=== PATIENT | female | born 1985 | race African-American/Black ===

== ENCOUNTER 2016-06-07 02:31 | Emergency (ER) | payer OTHER ==
[~2016-06-07] VITALS: Ht 160 cm; Wt 85.9 kg
[2016-06-07 03:07] LABS: HEMATOCRIT 32.3 % (37.0-47.0); IMMATURE GRANULOCYTES 0.2 % (0.0-1.0); MEAN CELL VOLUME 83.9 fL CALC (80.0-100.0); NEUT# 2.41 thou/uL (2.00-7.15); RED BLOOD COUNT 3.85 mill/uL (4.20-5.60); RED CELL DISTRI WIDTH 14.6 % (11.5-15.5)
[2016-06-07 03:08] LABS: URINE BILIRUBIN - DIPSTICK NEGATIVE (NEGATIVE); URINE BLOOD DIPSTICK NEGATIVE (NEGATIVE); URINE CLARITY TURBID; URINE COLOR YELLOW; URINE GLUCOSE - DIPSTICK NEGATIVE (NEGATIVE); URINE KETONE NEGATIVE (NEGATIVE); URINE LEUK ESTERASE LARGE (NEGATIVE); URINE NITRITE - DIPSTICK NEGATIVE (Negative); URINE PH 6.5 (4.5-8.0); URINE PROTEIN - DIPSTICK NEGATIVE (NEG-TRACE); URINE UROBILINOGEN - DIPSTICK 0.2 E.U./dL (0.2)
[2016-06-07 03:09] LABS: URINE BACTERIA MODERATE hpf; URINE RBC 0-2 RBC/hpf (0-5); URINE SQUAMOUS EPITHELIAL CELL MANY EPI/hpf (0-FEW); URINE WBC 50-100 WBC/hpf (0-5)
[2016-06-07 03:27] LABS: ALBUMIN 4.2 g/dL (3.2-5.0); ALKALINE PHOSPHATASE 67 u/l (38-126); ANION GAP 16 (6-22 (CALC)); BILIRUBIN, TOTAL 0.4 mg/dL (0.0-1.4); BUN 16 mg/dL (7-17); BUN/CREATININE RATIO 25 (12-20 (CALC)); CALCIUM 9.6 mg/dL (8.4-10.2); CARBON DIOXIDE 24 mmol/l (22-30); CHLORIDE 104 mmol/l (95-108); CREATININE 0.6 mg/dL (0.5-1.0); GFR > 60 ML/MIN (>=60 (CALC)); GFR FOR AFR.AMER. > 60 ML/MIN (>=60 (CALC)); GLUCOSE 97 mg/dL (65-105); POTASSIUM 4.2 mmol/l (3.5-5.1); SGOT/AST 26 u/l (14-36); SGPT/ALT 34 u/l (9-52); SODIUM 140 mmol/l (137-146); TOTAL PROTEIN 7.8 g/dL (6.3-8.2)
[2016-06-07 03:39] LABS: MYOGLOBIN 19 ng/mL (0 - 62)
[2016-06-07] MEDS ORDERED: NAPROSYN500 MG PO (04:03)
[2016-06-07] MEDS ORDERED: CIPROFLOXACN500 MG PO (04:09)
[2016-06-07 04:40] VITALS: BP 109/68
--- NOTE | 2016-06-08 08:36 | NUR ---
PHARMACY MEDICATION FOLLOW-UP Patient was seen in ED on 06/07/16 Cultures were reviewed from: Urine Patient was discharged with Rx for:CIPRO C&S report came back with Growth PLAN: C&S report called to physician Physician that was contacted: Contact #: Recommended: No Change Per Physician; Called the patient to Comment: 50,000 CFU, MIXED GM POS LUCINA, PROBABLE CONTAMINATION
== END 2016-06-07 04:15 | disposition home or self-care (01) | DRG 313 ==
LOC: ED 02:31
PROVIDERS: Emergency Medicine
DX: R07.89 Other chest pain (principal); N39.0 Urinary tract infection, site not specified; M19.012 Primary osteoarthritis, left shoulder